=== PATIENT | female | born 1985 | race African-American/Black ===

== ENCOUNTER 2020-01-25 23:58 | Inpatient (IN) ==
[2020-01-26] MEDS ORDERED: ceFAZolin 3,000 MG in SYRINGE 1 EACH IV ONE (00:25)
[2020-01-26] MEDS ORDERED: CITRIC ACID/SODIUM CITRATE 30 ML UDCUP PO ONE (00:25)
[2020-01-26] MEDS ORDERED: LACTATED RINGERS 1,000 ML IV SCH ×2 (00:30→02:30)
[2020-01-26] MEDS ORDERED: SODIUM CHLORIDE 0.9% 1,000 ML IV PRN (00:33)
[2020-01-26] MEDS ORDERED: FAMOTIDINE 20 MG/2 ML VIAL IV ONE (00:46)
[2020-01-26] MEDS ORDERED: OXYTOCIN/LR 30 UNIT/1,000 ML BAG IV ONE (00:47)
[2020-01-26] MEDS ORDERED: OXYTOCIN 10 UNIT/ML VIAL IM ONE (00:47)
[2020-01-26 00:50] LABS: Basophils % 0.2 % (0.0-0.8); Eosinophils % 0.4 % (0.00-10.9); Hematocrit 32.7 VOL% (35.7-47.0); Hemoglobin 10.4 GM/DL (12.0-16.0); Immature Granulocytes % 1.5 %; Immature Granulocytes Absolute 0.14 #; Lymphocytes # 1.7 10*3/uL (1.4-4.0); Lymphocytes % 18.2 % (21.3-54.2); Mean Corpuscular HGB Conc 31.8 GM/DL (32-36); Mean Corpuscular Volume 80.7 FL (87-102); Mean Platelet Volume 10.5 FL (9.6-12.0); Monocytes % 6.9 % (1.7-12.7); NRBC # 0.02 10*3/uL; Neutrophils % 72.8 % (38.7-73.9); Platelet Count 268 T/CUMM (130-400); Red Blood Count 4.05 MC/CUMM (3.8-5.5); Red Cell Distribution Width 17.1 % (9.3-17.3); White Blood Count 9.5 T/CUMM (4-12)
[2020-01-26] MEDS ORDERED: ePHEDrine 50 MG/ML VIAL ONE (00:55)
[2020-01-26] MEDS ORDERED: KETAMINE 500 MG/10 ML VIAL ONE (00:56)
[2020-01-26 01:06] LABS: Bilirubin,Urine Negative (Negative); Blood, Urine Negative (Negative); Glucose,Urine (UA) 150 mg/dL (Negative); Ketones,Urine 5 mg/dL (Negative); Mucus,Urine Occasional /LPF (Occasional); Nitrite,Urine Negative (Negative); Protein,Urine 30 MG/DL; RBC,Urine 2 /HPF (0-4); Squamous Epithelial Cell,Urine Occasional /HPF (0-10); Urine Appearance CLEAR (Clear); Urine Color Yellow (Yellow); Urine Specific Gravity 1.023 (1.001-1.035); Urine Urobilinogen < 2.0 EU/DL (0.2-1.0); WBC,Urine 2 /HPF (0-6)
[2020-01-26] MEDS ORDERED: MORPHINE 10 MG/10 ML VIAL ONE (01:07)
[2020-01-26 01:13] LABS: Albumin 2.1 G/DL (3.4-5.0); Bilirubin,Total 0.4 MG/DL (0.2-1.0); Total Protein 6.6 G/DL (6.4-8.3)
[2020-01-26] MEDS ORDERED: PHENYLEPHRINE 1 MG/10 ML SYRINGE IV ONE ×2 (01:52)
[2020-01-26] MEDS ORDERED: BUPIVACAINE SPINAL 0.75% 2 ML AMP SPINAL ONE (01:52)
[2020-01-26] MEDS ORDERED: ONDANSETRON 4 MG/2 ML VIAL ONE (01:52)
[2020-01-26] MEDS ORDERED: RHO(D) IMMUNE GLOBULIN 300 MCG SYRINGE IM ONE (02:10)
[2020-01-26] MEDS ORDERED: OXYTOCIN/LR 20 UNIT/1,000 ML BAG IV ONE (02:10)
[2020-01-26] MEDS ORDERED: ACETAMINOPHEN 325 MG TABLET PO PRN (02:10)
[2020-01-26 02:12] LABS: Cord Arterial Blood HCO3 25.5 MMOL/L
[2020-01-26 02:13] LABS: Cord Venous Blood HCO3 19.4 MMOL/L; Cord Venous Blood PCO2 64.8 MMHG
[2020-01-26 02:15] LABS: Cord Venous Blood PO2 15.9
[2020-01-26] MEDS ORDERED: diphenhydrAMINE 50 MG/1 ML VIAL IV PRN (07:41)
[2020-01-26 08:12] LABS: Basophils % 0.1 % (0.0-0.8); Eosinophils % 0.1 % (0.00-10.9); Hematocrit 32.9 VOL% (35.7-47.0); Hemoglobin 10.4 GM/DL (12.0-16.0); Lymphocytes # 1.7 10*3/uL (1.4-4.0); Lymphocytes % 17.4 % (21.3-54.2); Mean Corpuscular HGB Conc 31.6 GM/DL (32-36); Mean Corpuscular Volume 80.8 FL (87-102); Mean Platelet Volume 10.7 FL (9.6-12.0); Monocytes % 7.2 % (1.7-12.7); Neutrophils % 74.2 % (38.7-73.9); Platelet Count 238 T/CUMM (130-400); Red Blood Count 4.07 MC/CUMM (3.8-5.5); Red Cell Distribution Width 17.1 % (9.3-17.3); White Blood Count 9.7 T/CUMM (4-12)
[2020-01-26] MEDS: ceFAZolin 1,000 MG in SYRINGE 1 EACH IV SCH ×2 (08:33→17:24)
[2020-01-26] MEDS ORDERED: CITRIC ACID/SODIUM CITRATE 30 ML UDCUP PO SCH (09:00)
[2020-01-26] MEDS ORDERED: ONDANSETRON 4 MG/2 ML VIAL IV PRN (09:21)
[2020-01-26] MEDS: MULTIVITAMIN (PRENATAL) TABLET PO SCH (10:12)
[2020-01-26] MEDS: DOCUSATE SODIUM 100 MG CAPSULE PO SCH ×2 (10:12→21:12)
[2020-01-26] MEDS ORDERED: hydrOXYzine HCL 25 MG TABLET PO PRN (13:38)
[2020-01-26] MEDS: MEPERIDINE 50 MG/1 ML VIAL IV PRN (16:42)
[2020-01-27] MEDS: MEPERIDINE 50 MG/1 ML VIAL IV PRN ×2 (05:05→15:56)
[2020-01-27] MEDS: DOCUSATE SODIUM 100 MG CAPSULE PO SCH ×2 (08:34→20:41)
[2020-01-27] MEDS: MULTIVITAMIN (PRENATAL) TABLET PO SCH (08:34)
[2020-01-27] MEDS ORDERED: MEPERIDINE 50 MG/1 ML VIAL IM ONE (09:18)
[2020-01-27] MEDS ORDERED: PROMETHAZINE 25 MG/1 ML VIAL IM ONE (09:21)
[2020-01-27] MEDS: IBUPROFEN 800 MG TABLET PO PRN (11:31)
[2020-01-27] MEDS ORDERED: MAGNESIUM CITRATE 300 ML BOTTLE PO ONE ×2 (16:32→21:00)
[2020-01-27] MEDS: METOCLOPRAMIDE 10 MG TABLET PO SCH (17:36)
[2020-01-27] MEDS: MAGNESIUM HYDROXIDE SUSP 30 ML UDCUP PO PRN (17:36)
[2020-01-27] MEDS: SIMETHICONE CHEW 80 MG TABLET PO PRN (17:36)
[2020-01-28] MEDS ORDERED: MAGNESIUM CITRATE 300 ML BOTTLE PO ONE (08:38)
[2020-01-28] MEDS: DOCUSATE SODIUM 100 MG CAPSULE PO SCH ×2 (09:40→20:20)
[2020-01-28] MEDS: METOCLOPRAMIDE 10 MG TABLET PO SCH ×3 (09:40→18:25)
[2020-01-28] MEDS: MAGNESIUM HYDROXIDE SUSP 30 ML UDCUP PO PRN ×2 (10:00→20:20)
[2020-01-28] MEDS: SIMETHICONE CHEW 80 MG TABLET PO PRN ×3 (10:00→20:20)
[2020-01-28] MEDS: ACETAMINOPHEN 500 MG TABLET PO PRN ×2 (10:43→20:20)
[2020-01-28] MEDS: MULTIVITAMIN (PRENATAL) TABLET PO SCH (10:44)
[2020-01-28] MEDS: DEXTROSE 5% LACTATED RINGERS 1,000 ML IV SCH ×2 (11:33→20:34)
[2020-01-28] MEDS: IBUPROFEN 800 MG TABLET PO PRN ×3 (14:38→20:40)
[2020-01-28 17:58] LABS: Basophils % 0.1 % (0.0-0.8); Eosinophils % 0.1 % (0.00-10.9); Hematocrit 34.2 VOL% (35.7-47.0); Hemoglobin 10.8 GM/DL (12.0-16.0); Immature Granulocytes % 0.8 %; Immature Granulocytes Absolute 0.09 #; Lymphocytes # 1.4 10*3/uL (1.4-4.0); Lymphocytes % 12.6 % (21.3-54.2); Mean Corpuscular HGB Conc 31.6 GM/DL (32-36); Mean Corpuscular Volume 80.7 FL (87-102); Mean Platelet Volume 10.2 FL (9.6-12.0); Monocytes % 8.5 % (1.7-12.7); NRBC # 0.03 10*3/uL; Neutrophils % 77.9 % (38.7-73.9); Platelet Count 303 T/CUMM (130-400); Red Blood Count 4.24 MC/CUMM (3.8-5.5); Red Cell Distribution Width 17.2 % (9.3-17.3); White Blood Count 11.1 T/CUMM (4-12)
[2020-01-29] MEDS: METOCLOPRAMIDE 10 MG TABLET PO SCH ×3 (00:30→17:26)
[2020-01-29] MEDS: DEXTROSE 5% LACTATED RINGERS 1,000 ML IV SCH ×4 (02:35→18:33)
[2020-01-29] MEDS: SIMETHICONE CHEW 80 MG TABLET PO PRN (05:05)
[2020-01-29] MEDS: IBUPROFEN 800 MG TABLET PO PRN ×3 (05:05→22:12)
[2020-01-29] MEDS: ONDANSETRON 4 MG/2 ML VIAL IV PRN ×2 (05:34→20:39)
[2020-01-29] MEDS: DOCUSATE SODIUM 100 MG CAPSULE PO SCH ×2 (08:10→20:20)
[2020-01-29] MEDS: MULTIVITAMIN (PRENATAL) TABLET PO SCH (08:10)
[2020-01-30] MEDS: CLINDAMYCIN INJ 600 MG in PREMIX 1 EACH IV SCH ×3 (00:19→15:24)
[2020-01-30] MEDS: METOCLOPRAMIDE 10 MG TABLET PO SCH ×3 (00:19→16:24)
[2020-01-30] MEDS: SIMETHICONE CHEW 80 MG TABLET PO PRN (00:19)
[2020-01-30] MEDS: ONDANSETRON 4 MG/2 ML VIAL IV PRN (03:29)
[2020-01-30] MEDS: IBUPROFEN 800 MG TABLET PO PRN ×2 (05:21→20:27)
[2020-01-30] MEDS: DEXTROSE 5% LACTATED RINGERS 1,000 ML IV SCH ×2 (07:54→11:16)
[2020-01-30] MEDS: DOCUSATE SODIUM 100 MG CAPSULE PO SCH ×2 (09:00→20:26)
[2020-01-30] MEDS: MULTIVITAMIN (PRENATAL) TABLET PO SCH (09:01)
[2020-01-31] MEDS: CLINDAMYCIN INJ 600 MG in PREMIX 1 EACH IV SCH ×4 (00:26→14:34)
[2020-01-31] MEDS: METOCLOPRAMIDE 10 MG TABLET PO SCH ×2 (00:27→09:24)
[2020-01-31] MEDS: SIMETHICONE CHEW 80 MG TABLET PO PRN ×2 (03:10→10:12)
[2020-01-31] MEDS: MULTIVITAMIN (PRENATAL) TABLET PO SCH (09:24)
[2020-01-31] MEDS: DOCUSATE SODIUM 100 MG CAPSULE PO SCH (09:24)
[2020-01-31] MEDS: IBUPROFEN 800 MG TABLET PO PRN (10:09)
[2020-01-31 12:07] VITALS: BP 139/83
[2020-01-31] MEDS: ACETAMINOPHEN 500 MG TABLET PO PRN (12:41)
== END 2020-01-31 15:35 | disposition home or self-care (01) | DRG 540 ==
LOC: N.LDOUT 23:58 → N.LD 01-26 00:02 → N.2E 01-26 09:08
PROVIDERS: ADMIT Obstetrics & Gynecology; ATTEND Obstetrics & Gynecology
PROC: LDCSECT (ICD-10-PCS; 2020-01-26 00:30)

== ENCOUNTER 2020-02-01 08:59 | Inpatient (IN) ==
[2020-02-01] MEDS ORDERED: SODIUM CHLORIDE 0.9% 1,000 ML IV STA (09:24)
[2020-02-01] MEDS ORDERED: ONDANSETRON 4 MG/2 ML VIAL ONE (09:35)
[2020-02-01 09:41] LABS: Basophils % 0.1 % (0.0-0.8); Hematocrit 36.2 VOL% (35.7-47.0); Hemoglobin 11.4 GM/DL (12.0-16.0); Immature Granulocytes % 0.4 %; Immature Granulocytes Absolute 0.05 #; Lymphocytes # 0.8 10*3/uL (1.4-4.0); Mean Corpuscular HGB Conc 31.5 GM/DL (32-36); Mean Corpuscular Volume 79.4 FL (87-102); Monocytes % 3.7 % (1.7-12.7); Neutrophils % 88.8 % (38.7-73.9); Platelet Count 493 T/CUMM (130-400); Red Blood Count 4.56 MC/CUMM (3.8-5.5); Red Cell Distribution Width 16.5 % (9.3-17.3); White Blood Count 11.1 T/CUMM (4-12)
[2020-02-01] MEDS ORDERED: ONDANSETRON 4 MG/2 ML VIAL IV STA ×2 (09:41→11:33)
[2020-02-01 09:52] LABS: PT Patient Result 10.9 SECS (9.8-11.9); Partial Thromboplastin Time 34.7 SECS (23.9-33.8)
[2020-02-01 10:00] LABS: Band Neutrophils 6 % (0-10); Lymphocytes 4 % (20-55); Segmented Neutrophils 87 % (50-85); Total Cells Counted 100
[2020-02-01 10:01] LABS: Hypochromasia 1+; Microcytosis 1+; Platelet Estimate Adequate
[2020-02-01 10:12] LABS: Albumin 2.1 G/DL (3.4-5.0); Bilirubin,Total 0.5 MG/DL (0.2-1.0); Calcium 8.8 MG/DL (8.5-10.1); Osmolality,Calculated 272.1 MOS/KG (273-304); Total Protein 7.2 G/DL (6.4-8.3)
[2020-02-01 11:15] LABS: Bilirubin,Urine Negative (Negative); Blood, Urine Negative (Negative); Glucose,Urine (UA) Negative (Negative); Ketones,Urine 20 mg/dL (Negative); Mucus,Urine Few /LPF (Occasional); Nitrite,Urine Negative (Negative); Protein,Urine 30 MG/DL; RBC,Urine 5 /HPF (0-4); Squamous Epithelial Cell,Urine Occasional /HPF (0-10); Urine Appearance CLEAR (Clear); Urine Color Yellow (Yellow); Urine Specific Gravity > 1.060 (1.001-1.035); Urine Urobilinogen < 2.0 EU/DL (0.2-1.0)
[2020-02-01 11:20] LABS: Barbiturates Screen,Urine Negative (Negative); Benzodiazepines Screen,Urine Negative (Negative); Cannabinoid Screen,Urine Negative (Negative); Opiate Screen,Urine Positive (Negative); Phencyclidine Screen,Urine Negative (Negative)
[2020-02-01] MEDS ORDERED: HYDROmorphone 2 MG/1 ML VIAL ONE (11:27)
[2020-02-01] MEDS ORDERED: HYDROmorphone 2 MG/1 ML VIAL IV STA (11:33)
[2020-02-01] MEDS ORDERED: DEXTROSE 50% 25 GM/50 ML VIAL IV PRN (11:44)
[2020-02-01] MEDS ORDERED: GLUCAGON 1 MG VIAL IM PRN (11:44)
[2020-02-01] MEDS: POTASSIUM CHLORIDE 20 MEQ TABLET PO PRN (16:00)
[2020-02-01] MEDS: cefTRIAXone 1,000 MG in SYRINGE 1 EACH IV SCH (16:00)
[2020-02-01] MEDS: ENOXAPARIN 40 MG/0.4 ML SYRINGE SUBCUT SCH (16:00)
[2020-02-01] MEDS: AZITHROMYCIN INJ 500 MG in SODIUM CHLORIDE 0.9% 250 ML IV SCH (16:10)
[2020-02-01] MEDS: ONDANSETRON 4 MG/2 ML VIAL IV PRN (16:53)
[2020-02-01] MEDS ORDERED: LORazepam 2 MG/1 ML VIAL IV ONE (17:40)
[2020-02-01] MEDS ORDERED: LABETALOL 20 MG/4 ML SYRINGE IV PRN (18:48)
[2020-02-01] MEDS: SODIUM CHLORIDE 0.9% 1,000 ML IV SCH (19:50)
[2020-02-01] MEDS ORDERED: LORazepam 0.5 MG TABLET PO PRN (23:26)
[2020-02-02] MEDS: ENOXAPARIN 40 MG/0.4 ML SYRINGE SUBCUT SCH ×2 (02:04→14:55)
[2020-02-02 04:38] LABS: Basophils % 0.4 % (0.0-0.8); Hematocrit 34.4 VOL% (35.7-47.0); Hemoglobin 10.6 GM/DL (12.0-16.0); Immature Granulocytes % 0.6 %; Immature Granulocytes Absolute 0.05 #; Lymphocytes % 11.3 % (21.3-54.2); Mean Corpuscular HGB Conc 30.8 GM/DL (32-36); Mean Corpuscular Volume 80.9 FL (87-102); Mean Platelet Volume 9.6 FL (9.6-12.0); Monocytes % 5.9 % (1.7-12.7); Neutrophils % 81.8 % (38.7-73.9); Platelet Count 438 T/CUMM (130-400); Red Blood Count 4.25 MC/CUMM (3.8-5.5); Red Cell Distribution Width 16.8 % (9.3-17.3); White Blood Count 8.5 T/CUMM (4-12)
[2020-02-02 05:04] LABS: Band Neutrophils 10 % (0-10); Hypochromasia Slight; Lymphocytes 8 % (20-55); Microcytosis 1+; Platelet Estimate Increased; Segmented Neutrophils 76 % (50-85); Total Cells Counted 100
[2020-02-02 05:22] LABS: Albumin 1.9 G/DL (3.4-5.0); Bilirubin,Total 1.1 MG/DL (0.2-1.0); Calcium 8.5 MG/DL (8.5-10.1); Osmolality,Calculated 270.1 MOS/KG (273-304); Total Protein 6.8 G/DL (6.4-8.3)
[2020-02-02] MEDS: SODIUM CHLORIDE 0.9% 1,000 ML IV SCH (08:50)
[2020-02-02] MEDS: DEXAMETHASONE 4 MG/1 ML VIAL IV SCH (08:51)
[2020-02-02] MEDS: LORazepam 1 MG TABLET PO PRN ×2 (09:52→22:54)
[2020-02-02] MEDS: ONDANSETRON 4 MG/2 ML VIAL IV PRN ×2 (12:50→20:22)
[2020-02-02] MEDS: MORPHINE 4 MG/1 ML VIAL IV PRN ×3 (12:50→20:22)
[2020-02-02] MEDS ORDERED: PROMETHAZINE 25 MG/1 ML VIAL IM ONE (13:05)
[2020-02-02] MEDS: cefTRIAXone 1,000 MG in SYRINGE 1 EACH IV SCH (14:58)
[2020-02-02] MEDS: AZITHROMYCIN INJ 500 MG in SODIUM CHLORIDE 0.9% 250 ML IV SCH (15:00)
[2020-02-02] MEDS: POTASSIUM CHLORIDE 20 MEQ TABLET PO PRN ×3 (20:22→23:50)
[2020-02-03] MEDS: MORPHINE 4 MG/1 ML VIAL IV PRN ×4 (01:44→20:46)
[2020-02-03] MEDS: ONDANSETRON 4 MG/2 ML VIAL IV PRN ×2 (02:03→20:46)
[2020-02-03] MEDS: ENOXAPARIN 40 MG/0.4 ML SYRINGE SUBCUT SCH ×2 (02:52→16:23)
[2020-02-03] MEDS: SODIUM CHLORIDE 0.9% 1,000 ML IV SCH ×2 (04:53→20:31)
[2020-02-03 06:43] LABS: Basophils % 0.2 % (0.0-0.8); Hematocrit 33.2 VOL% (35.7-47.0); Hemoglobin 10.4 GM/DL (12.0-16.0); Immature Granulocytes % 1.3 %; Immature Granulocytes Absolute 0.17 #; Lymphocytes # 1.2 10*3/uL (1.4-4.0); Mean Corpuscular HGB Conc 31.3 GM/DL (32-36); Mean Corpuscular Volume 80.2 FL (87-102); Mean Platelet Volume 9.3 FL (9.6-12.0); Monocytes % 3.2 % (1.7-12.7); Neutrophils % 86.3 % (38.7-73.9); Platelet Count 482 T/CUMM (130-400); Red Blood Count 4.14 MC/CUMM (3.8-5.5); Red Cell Distribution Width 16.6 % (9.3-17.3); White Blood Count 13.3 T/CUMM (4-12)
[2020-02-03 06:45] LABS: Ferritin 184.9 ng/ml (8-252)
[2020-02-03 06:46] LABS: Albumin 1.8 G/DL (3.4-5.0); Bilirubin,Total 0.4 MG/DL (0.2-1.0); Calcium 8.4 MG/DL (8.5-10.1); Osmolality,Calculated 268.1 MOS/KG (273-304); Total Protein 6.2 G/DL (6.4-8.3)
[2020-02-03 07:14] LABS: Band Neutrophils 4 % (0-10); Hypochromasia 1+; Lymphocytes 10 % (20-55); Microcytosis 1+; Platelet Estimate Adequate; Segmented Neutrophils 80 % (50-85); Total Cells Counted 100
[2020-02-03] MEDS: DEXAMETHASONE 4 MG/1 ML VIAL IV SCH (08:37)
[2020-02-03] MEDS: POTASSIUM CHLORIDE RIDER 10 MEQ in PREMIX 1 EACH IV PRN ×3 (11:42→14:13)
[2020-02-03] MEDS: cefTRIAXone 1,000 MG in SYRINGE 1 EACH IV SCH (16:23)
[2020-02-03] MEDS: AZITHROMYCIN INJ 500 MG in SODIUM CHLORIDE 0.9% 250 ML IV SCH (16:23)
[2020-02-03] MEDS: LORazepam 1 MG TABLET PO PRN (17:32)
[2020-02-04] MEDS: MORPHINE 4 MG/1 ML VIAL IV PRN ×4 (00:14→23:21)
[2020-02-04] MEDS: LORazepam 1 MG TABLET PO PRN (03:50)
[2020-02-04] MEDS: ENOXAPARIN 40 MG/0.4 ML SYRINGE SUBCUT SCH ×2 (03:50→15:41)
[2020-02-04] MEDS: SODIUM CHLORIDE 0.9% 1,000 ML IV SCH ×2 (06:16→16:29)
[2020-02-04 06:48] LABS: Basophils % 0.2 % (0.0-0.8); Eosinophils % 0.1 % (0.00-10.9); Hematocrit 31.4 VOL% (35.7-47.0); Hemoglobin 9.9 GM/DL (12.0-16.0); Immature Granulocytes % 3.4 %; Immature Granulocytes Absolute 0.54 #; Lymphocytes # 1.7 10*3/uL (1.4-4.0); Lymphocytes % 10.4 % (21.3-54.2); Mean Corpuscular HGB Conc 31.5 GM/DL (32-36); Mean Corpuscular Volume 80.5 FL (87-102); Mean Platelet Volume 8.9 FL (9.6-12.0); Monocytes % 4.9 % (1.7-12.7); Platelet Count 488 T/CUMM (130-400); Red Cell Distribution Width 16.9 % (9.3-17.3); White Blood Count 15.9 T/CUMM (4-12)
[2020-02-04 07:10] LABS: Hypochromasia 1+; Lymphocytes 16 % (20-55); Microcytosis 1+; Platelet Estimate Adequate; Segmented Neutrophils 79 % (50-85); Total Cells Counted 100
[2020-02-04 07:13] LABS: Albumin 1.8 G/DL (3.4-5.0); Bilirubin,Total 0.6 MG/DL (0.2-1.0); Calcium 8.3 MG/DL (8.5-10.1); Total Protein 6.1 G/DL (6.4-8.3)
[2020-02-04 07:28] LABS: Ferritin 187.3 ng/ml (8-252)
[2020-02-04] MEDS: DEXAMETHASONE 4 MG/1 ML VIAL IV SCH (08:50)
[2020-02-04] MEDS: NICOTINE 14 MG/24 HR PATCH TRANSDERM SCH (08:51)
[2020-02-04] MEDS: cefTRIAXone 1,000 MG in SYRINGE 1 EACH IV SCH (15:41)
[2020-02-04] MEDS: AZITHROMYCIN INJ 500 MG in SODIUM CHLORIDE 0.9% 250 ML IV SCH (15:42)
[2020-02-04] MEDS: POTASSIUM CHLORIDE RIDER 10 MEQ in PREMIX 1 EACH IV PRN ×4 (15:42→19:25)
[2020-02-04] MEDS: ACETAMINOPHEN 325 MG TABLET PO PRN (16:44)
[2020-02-05] MEDS: MORPHINE 4 MG/1 ML VIAL IV PRN ×5 (02:30→21:45)
[2020-02-05] MEDS: SODIUM CHLORIDE 0.9% 1,000 ML IV SCH ×3 (02:30→23:39)
[2020-02-05] MEDS: POTASSIUM CHLORIDE RIDER 10 MEQ in PREMIX 1 EACH IV PRN ×2 (02:53→04:50)
[2020-02-05] MEDS: ENOXAPARIN 40 MG/0.4 ML SYRINGE SUBCUT SCH ×2 (02:55→16:13)
[2020-02-05] MEDS: DEXAMETHASONE 4 MG/1 ML VIAL IV SCH (08:46)
[2020-02-05] MEDS: NICOTINE 14 MG/24 HR PATCH TRANSDERM SCH (08:46)
[2020-02-05] MEDS: AZITHROMYCIN INJ 500 MG in SODIUM CHLORIDE 0.9% 250 ML IV SCH (16:13)
[2020-02-05] MEDS: cefTRIAXone 1,000 MG in SYRINGE 1 EACH IV SCH (16:13)
[2020-02-05] MEDS: ACETAMINOPHEN 325 MG TABLET PO PRN (23:36)
[2020-02-06] MEDS: MORPHINE 4 MG/1 ML VIAL IV PRN ×2 (00:45→20:47)
[2020-02-06] MEDS: ENOXAPARIN 40 MG/0.4 ML SYRINGE SUBCUT SCH ×2 (03:32→15:44)
[2020-02-06 05:08] LABS: Calcium 8.4 MG/DL (8.5-10.1); Osmolality,Calculated 276.4 MOS/KG (273-304)
[2020-02-06 05:26] LABS: Basophils # 0.1 10*3/uL (0.0-0.2); Basophils % 0.5 % (0.0-0.8); Hematocrit 31.4 VOL% (35.7-47.0); Hemoglobin 9.7 GM/DL (12.0-16.0); Immature Granulocytes % 8.9 %; Lymphocytes # 2.1 10*3/uL (1.4-4.0); Lymphocytes % 17.1 % (21.3-54.2); Mean Corpuscular HGB Conc 30.9 GM/DL (32-36); Mean Corpuscular Volume 81.3 FL (87-102); Mean Platelet Volume 9.7 FL (9.6-12.0); Monocytes % 10.2 % (1.7-12.7); Neutrophils % 63.3 % (38.7-73.9); Platelet Count 555 T/CUMM (130-400); Red Blood Count 3.86 MC/CUMM (3.8-5.5); White Blood Count 12.4 T/CUMM (4-12)
[2020-02-06 07:17] LABS: Band Neutrophils 1 % (0-10); Lymphocytes 17 % (20-55); Metamyelocytes 4 %; Segmented Neutrophils 71 % (50-85); Total Cells Counted 100
[2020-02-06 07:18] LABS: Hypochromasia 2+; Platelet Estimate Normal
[2020-02-06] MEDS: DEXAMETHASONE 4 MG/1 ML VIAL IV SCH (08:24)
[2020-02-06] MEDS: NICOTINE 14 MG/24 HR PATCH TRANSDERM SCH (08:24)
[2020-02-06] MEDS: POTASSIUM CHLORIDE RIDER 10 MEQ in PREMIX 1 EACH IV PRN ×4 (08:25→18:22)
[2020-02-06] MEDS: SODIUM CHLORIDE 0.9% 1,000 ML IV SCH (11:10)
[2020-02-06] MEDS: AZITHROMYCIN INJ 500 MG in SODIUM CHLORIDE 0.9% 250 ML IV SCH (15:44)
[2020-02-06] MEDS: cefTRIAXone 1,000 MG in SYRINGE 1 EACH IV SCH (15:44)
[2020-02-07] MEDS: ENOXAPARIN 40 MG/0.4 ML SYRINGE SUBCUT SCH (03:45)
[2020-02-07] MEDS: SODIUM CHLORIDE 0.9% 1,000 ML IV SCH (03:45)
[2020-02-07] MEDS: MORPHINE 4 MG/1 ML VIAL IV PRN (04:31)
[2020-02-07 07:26] LABS: Calcium 8.2 MG/DL (8.5-10.1); Osmolality,Calculated 274.5 MOS/KG (273-304)
[2020-02-07] MEDS: NICOTINE 14 MG/24 HR PATCH TRANSDERM SCH (09:08)
[2020-02-07] MEDS: DEXAMETHASONE 4 MG/1 ML VIAL IV SCH (10:07)
[2020-02-07 11:39] VITALS: BP 131/71
[2020-02-07] MEDS: ACETAMINOPHEN 325 MG TABLET PO PRN (12:37)
== END 2020-02-07 15:05 | disposition home or self-care (01) | DRG 561 ==
LOC: N.ED 08:59 → N.EDINP 11:43 → N.CC 19:04 → N.2E 02-02 18:07
PROVIDERS: ADMIT Internal Medicine; ATTEND Internal Medicine